=== PATIENT | male | born 2000 ===

== ENCOUNTER 2024-02-26 08:57 | Day surgery (SDC) | payer BC ==
[2024-02-23 12:54] LABS: Absolute Eosinophils 0.4 K/uL (0-0.5); Absolute Lymphocytes (CBC) 1.7 K/uL (0.7-4.9); Absolute Monocytes 0.6 K/uL (0.1-1.3); Absolute Neutrophil 2.2 K/uL (1.8-8.0); Basophils % 0.7 % (0-1.3); Eosinophils % 8.5 % (0-4.4); Hematocrit 45.5 % (39.6-49.0); Hemoglobin 14.9 g/dL (13.6-17.9); Lymphocytes % 34.4 % (15.3-44.8); MCH 29.6 pg (27.0-35.0); MCHC 32.8 g/dL (32.0-36.0); MCV 90.4 fL (80-100); MPV 7.9 fL (7.6-11.3); Monocytes % 12.1 % (3.3-12.3); Neutrophils % 44.3 % (41.7-73.7); Nucleated Red Blood Cells % 0.1 % (0-0); Platelets 257 thou/uL (152-406); RBC Red Blood Cell Count 5.04 M/uL (4.33-5.43); Red Cell Distribution Width 13.1 % (12.1-15.2)
[2024-02-23 13:05] LABS: PT Prothrombin Time 11.4 SECONDS (9.4-12.5); PTT, Activated Partial Thromb 33.1 SECONDS (24.3-36.9); Protime INR 1.02
[2024-02-23 13:11] LABS: Anion Gap 7.1 mEq/L (5.0-15.0)
[2024-02-23 13:19] LABS: Potassium 4.1 mEq/L (3.5-5.1)
--- NOTE | 2024-02-23 13:50 | RAD REPORT ---
EXAMINATION: TWO VIEW CHEST XR CLINICAL INDICATION: Male, 23 years old. [facility] pre op for day surgery TECHNIQUE: 2 view radiographs of the chest were performed. COMPARISON: No prior exam. FINDINGS: The lungs are well inflated and clear. No pneumothorax or sizable effusion. The heart is normal in si ze. Mediastinal contours are unremarkable. Widening of the AC joints bilaterally with some heterotopic ossification most pronounced on the left. Please correlate for sequelae of prior surgery, or trauma. IMPRESSION: No acute or significant abnormalities. Bilateral AC joint space widening as above.
[2024-02-26] MEDS ORDERED: CEFAZOLIN SODIUM 2 GM/VIAL ONE (09:09)
[2024-02-26] MEDS: Ringers Lactate 1,000 ML IV ONE (09:20)
[2024-02-26] MEDS ORDERED: LIDOCAINE 2% MPF 5 ML VIAL ONE (10:32)
[2024-02-26] MEDS ORDERED: FENTANYL CITR 100 MCG/2 ML ONE ×2 (10:33→11:36)
[2024-02-26] MEDS ORDERED: propofoL 200 MG/20 ML VIAL IV ONE ×2 (10:33→11:11)
[2024-02-26] MEDS ORDERED: MIDAZOLAM HCL 2 MG/2 ML INJ ONE (10:34)
[2024-02-26] MEDS ORDERED: ONDANSETRON 4 MG/2 ML VIAL ONE (10:36)
[2024-02-26] MEDS ORDERED: dexAMETHasone 4 MG/ML VIAL ONE (10:36)
--- NOTE | 2024-02-26 11:10 | EKG ---
Test Date: 2024-02-23 Test Time: 13:41:25 Banquet Lead: GEOFFREY MEASUREMENT RESULTS: Intervals: Rate: 58 DC: 148 QRSD: 84 QT: 392 QTc: 384 [place]: P: 68 DC: 148 QRS: 69 T: 34 INTERPRETIVE STATEMENTS: Sinus bradycardia with sinus arrhythmia Septal infarct, age undetermined Abnormal ECG No previous ECG available for comparison Electronically Signed On 02-26-24 11:07:39 SAWMILL TALLY CLERK by Micha Zhu
[2024-02-26] MEDS: BUPIVACAINE 0.25% PF 10 ML VIAL ONE (12:20)
[2024-02-26] MEDS: MEPERIDINE HCL 25 MG/ML SYR ONE (12:50)
--- NOTE | 2024-02-26 12:58 | P.BOP ---
Preoperative diagnosis: left elbow bone fragment with olecranon bursitis Postoperative diagnosis: same Primary procedure: excision left elbow bone fragment and olecranon bursa Secondary procedure: examination under anesthesia right knee [employer]: NONE,NONE Estimated blood loss: 10 cc Specimen: none Findings: see dictation Anesthesia: General Complications: None Implants: none Fluids & blood products: per anesthesia record Transferred to: Recovery Room Condition: Good
[2024-02-26] MEDS: HYDRALAZINE HCL 20 MG/ML VIAL ONE (13:05)
[2024-02-26] MEDS: LABETALOL 20 MG/4ML SYRINGE IV ONE (13:24)
--- NOTE | 2024-02-26 13:43 | RAD REPORT ---
Exam:Elbow Left 2 View HISTORY: Left elbow surgery FINDINGS: No fracture or dislocation seen Post surgical changes posterior elbow.
[2024-02-26] MEDS: CODEINE 30MG/APAP 300MG TAB ONE (14:33)
[2024-02-26 15:10] VITALS: BP 139/75; TEMP 98.3; O2SAT 100
--- NOTE | 2024-03-25 10:19 | P.OP ---
Preoperative diagnosis: Left elbow bone fragment w/ olecranon bursitis, R knee PCL and LCL sprain Postoperative diagnosis: Same Primary procedure: excision left elbow bone fragment and olecranon bursa Secondary procedure: examination under anesthesia right knee Anesthesia: General Estimated blood loss: 10 cc Specimen: None Findings: see dictation Operative Technique: Indication for procedure: Tl is a 23-year-old male presented to my clinic with a painful posterior left elbow. Patient had x-rays and MRI of the left elbow that demonstrated a bone fragment posterior to the olecranon which was irritating the patient. Patient also reported injury to the right knee while playing football. MRI demonstrated a PCL and LCL sprain. I discussed the patie nt and his family at length risk and benefits associated with operative and nonoperative treatment measures. They expressed understanding and elected to proceed with operative treatment. Description of procedure: After informed consent was obtained, the patient was identified in the preoperative holding area the left upper extremity was marked. Patient was then brought back to the operating room transferred to the operating table in the supine fashion and placed under general LMA anesthesia. The right knee was examined aided. Patient was noted to have a grade 1A posterior drawer; and no increased laxity to varus or valgus stress at 0 or 30 degrees of knee flexion. The patient was placed in a hinged knee brace postoperatively to minimize stress as the knee healed. The left upper extremity was then prepped and draped in usual sterile fashion. A timeout was initiated. The correct patient and procedure confirmed and identified. The patient did receive his preoperative prophylactic antibiotics. Approximately a 3 cm longitudinal incision was made centered over the tip of the olecranon. Dissection was then taken down to the olecranon bursa which was excised using the 15 blade as well as Metzenbaums. Fluoroscopy was then used to identify the bone fragment which was somewhat scarred in. A [place] elevator and 15 blade was then used to excise the bone fragment. Fluoroscopy images were then taken to confirm complete excision of the bone fragment. The wound was then irrigated thoroughly with normal saline. Subcutaneous tissue was approximated using a 2-0 Vicryl. Skin was approximated using 3-0 nylon. Sterile dressings were applied and the patient was awakened and transferred to PACU in stable condition Postoperative plan: Patient may begin working on range of motion exercises. He will follow-up in 1 week for wound check and dressing change. Complications: None Implants: None Fluids & blood products: Per anesthesia record Transferred to: Recovery Room Condition: Good
== END 2024-02-26 14:38 | disposition home or self-care (01) ==
LOC: OR 08:57
PROVIDERS: ATTEND Orthopaedic Surgery Sports Medicine
PROC: 0RC Upper Joints, Extirpation (ICD-10-PCS; 2024-02-26)
PROC: 0SJC4ZZ Inspection of Right Knee Joint, Percutaneous Endoscopic Approach (ICD-10-PCS; 2024-02-26)
PROC: 0MB40ZZ Excision of Left Elbow Bursa and Ligament, Open Approach (ICD-10-PCS; principal; 2024-02-26 11:00)
DX: M70.22 Olecranon bursitis, left elbow (principal); S51.012A Laceration without foreign body of left elbow, initial encounter; S83.281A Other tear of lateral meniscus, current injury, right knee, initial encounter; S83.421A Sprain of lateral collateral ligament of right knee, initial encounter; M25.561 Pain in right knee; M25.522 Pain in left elbow
CPT/HCPCS: 24105; 29870; 24101; 93005; 85025; 80048; 36415; 85610; 85730; 71046; 76000; 73070; J0360; J2704 ×2; J1100; J2003; J2250; J3010 ×2; J2175; J2405; J7120